=== PATIENT | female | born 2000 | race African-American/Black ===

== ENCOUNTER 2020-08-31 12:39 | Emergency (ER) | payer SELFPAY ==
[2020-08-31] MEDS ORDERED: DIAZEPAM 5 MG TABLET ONE (13:50)
[2020-08-31 14:07] LABS: Absolute Lymphocytes (CBC) 0.9 K/uL (0.7-4.9); Basophils % 0.7 % (0-1.3); Hematocrit 38.1 % (36.0-45.0); Lymphocytes % 10.4 % (15.3-44.8); MPV 9.4 fL (7.6-11.3); RBC Red Blood Cell Count 4.22 M/uL (3.86-4.86)
[2020-08-31 14:23] LABS: Protime INR 0.99
[2020-08-31 14:25] LABS: ALT/SGPT 15 U/L (12-78); AST/SGOT 16 U/L (15-37); Albumin 4.3 g/dL (3.4-5.0); Alkaline Phosphatase 78 U/L (45-117); BUN Blood Urea Nitrogen 6 mg/dL (7-18); Bicarbonate 26 mmol/L (21-32); Bilirubin Direct < 0.1 mg/dL (0-0.2); Bilirubin Total 0.3 mg/dL (0.2-1.0); Glucose Level 89 mg/dL (74-106); Potassium 3.6 mmol/L (3.5-5.1); Protein, Total 7.6 g/dL (6.4-8.2); Sodium Level 140 mmol/L (136-145)
[2020-08-31 14:41] LABS: Urine Blood 2+ (Negative); Urine Glucose Negative (Negative); Urine Protein Negative (Negative); Urine Specific Gravity >=1.030 (1.005-1.030); Urine pH 5.5 (5.0-7.0)
[2020-08-31 15:26] LABS: Barbiturates NEGATIVE (NEGATIVE); Benzodiazepines NEGATIVE (NEGATIVE); Cocaine NEGATIVE (NEGATIVE); METHAMPHETAM NEGATIVE (NEGATIVE); Methadone NEGATIVE (NEGATIVE); Opiates NEGATIVE (NEGATIVE); Phencyclidine NEGATIVE (NEGATIVE); THC Cannibis POSITIVE (NEGATIVE)
--- NOTE | 2020-08-31 15:53 | ER ---
Nurse's Notes [facility] Name: Maday Yoder Age: 20 yrs Sex: Female : 2000 Arrival Date: 08/31/2020 Time: 12:49 Bed 17 Private MD: Diagnosis: Depression. Presentation: 08/31 12:54 Chief complaint: EMS states: pt arrived in ED via EMS for +SI/+HI attempted to hang tr6 herself while in [employer]. Per EMS pt tried to hang herself with a telephone cord, but a special police officer took the cord away. Pt attempted a second time, but was stopped once again by the officer. Pt AOx3, pt reports that she currently does not have any pain. +redness to front of neck. Pt reports that she has attempts in the past. Coronavirus screen: Client denies travel out of the [place] in the last 14 days. Ebola Screen: No symptoms or risks identified at this time. Risk Assessment: Do you want to hurt yourself or someone else? Patient reports desire/thoughts of hurting themselves or someone else. Provider notified. 12:54 Method Of Arrival: EMS tr6 12:54 Acuity: BAN 2 tr6 13:25 Initial Sepsis Screen: Does the patient meet any 2 criteria? No. Patient's initial tr6 sepsis screen is negative. Does the patient have a suspected source of infection? No. Patient's initial sepsis screen is negative. 13:25 Onset of symptoms is unknown. tr6 Triage Assessment: 12:59 Pain: Denies pain. EENT: redness to pts neck. Denies pain blurred vision difficulty tr6 swallowing. Neuro: No deficits noted. Cardiovascular: No deficits noted. Respiratory: No deficits noted. GI: No deficits noted. : No deficits noted. Derm: No deficits noted. Musculoskeletal: No deficits noted. Injury Description: redness noted to front of pts neck. 13:25 General: Behavior is calm, cooperative, crying, flat. tr6 CORE MAN: 09/03 10:12 LMP N/A - control method ll1 Historical: - Allergies: 08/31 12:58 No Known Allergies; tr6 - Home Meds: 12:59 Unable to obtain [Active]; tr6 - PMHx: 12:58 Bipolar disorder; Schizophrenia; tr6 - Immunization history:: Adult Immunizations unknown. - Social history:: Smoking status: Patient reports the use of cigarette tobacco products, smokes one pack cigarettes per day. Patient uses street drugs, marijuana, pt reports that she does pills. she is unsure what pills she takes, she gets the pills "from a thee". - Family history:: not pertinent. - Hospitalizations: : No recent hospitalization is reported. Screenin:03 Abuse screen: Denies threats or abuse. Nutritional screening: No deficits noted. tr6 Tuberculosis screening: No symptoms or risk factors identified. The patient passed the bedside swallow screening. Oral medications may be given as ordered. Contact Physician for further diet orders. Fall Risk None identified. Exposure risk/Travel Screening: None identified. Assessment: 13:03 General: Appears in no apparent distress. comfortable. Pain: Denies pain. Neuro: No tr6 deficits noted. Cardiovascular: No deficits noted. Respiratory: No deficits noted. GI: No deficits noted. : No deficits noted. EENT: No deficits noted. Derm: No deficits noted. Musculoskeletal: No deficits noted. Injury Description: redness noted to front of pts neck. 14:00 Reassessment: Patient appears in no apparent distress at this time. Patient is tr6 alert/active/playful, equal unlabored respirations, skin warm/dry/pink. 15:00 Reassessment: Patient appears in no apparent distress at this time. tr6 15:00 Reassessment: No changes from previously documented assessment. Patient and/or family tr6 updated on plan of care and expected duration. Pain level reassessed. Patient is alert, oriented x 3, equal unlabored respirations, skin warm/dry/pink. Patient denies pain at this time. 16:00 Reassessment: Patient appears in no apparent distress at this time. tr6 17:00 Reassessment: Patient appears in no apparent distress at this time. No changes from tr6 previously documented assessment. Patient and/or family updated on plan of care and expected duration. Pain level reassessed. Patient is alert, oriented x 3, equal unlabored respirations, skin warm/dry/pink. 17:44 Reassessment: pt sleeping. respirations even and unlabored. tr6 19:17 Reassessment: Patient appears in no apparent distress at this time. No changes from tr6 previously documented assessment. Patient and/or family updated on plan of care and expected duration. Pain level reassessed. Patient is alert, oriented x 3, equal unlabored respirations, skin warm/dry/pink. sitter at bedside. report given to EMILE Killian Patient denies pain at this time. 20:36 Reassessment: Patient and/or family updated on plan of care and expected duration. Pain ea level reassessed. Patient is alert, oriented x 3, equal unlabored respirations, skin warm/dry/pink. 22:22 Reassessment: Patient and/or family updated on plan of care and expected duration. Pain ea level reassessed. Pt resting with eyes closed, respirations even and unlabored. Chest expansions even and symmetrical. 09/01 02:13 Reassessment: Patient and/or family updated on plan of care and expected duration. Pain ea level reassessed. Pt resting with eyes closed, respirations even and unlabored, chest expansions even and symmetrical. 05:59 Reassessment: Patient and/or family updated on plan of care and expected duration. Pain ea level reassessed. Pt resting with eyes closed respirations even and unlabored. Chest expansions even and symmetrical. 07:00 Reassessment: Patient appears in no apparent distress at this time. Patient and/or hb family updated on plan of care and expected duration. Pain level reassessed. Patient is alert, oriented x 3, equal unlabored respirations, skin warm/dry/pink. Sitter at bedside. 08:00 Reassessment: Patient appears in no apparent distress at this time. Patient and/or hb family updated on plan of care and expected duration. Pain level reassessed. Patient is alert, oriented x 3, equal unlabored respirations, skin warm/dry/pink. Sitter at bedside. 09:00 Reassessment: Patient appears in no apparent distress at this time. Patient and/or hb family updated on plan of care and expected duration. Pain level reassessed. Patient is alert, oriented x 3, equal unlabored respirations, skin warm/dry/pink. Sitter at bedside. 09:47 Reassessment: Pt restless, c/o feeling anxious. Dr. Gibson notified, Ativan hb administered as ordered. Pt in bed, watching television, VSS. Sitter remains at bedside. 10:22 Reassessment: Patient appears in no apparent distress at this time. Patient and/or vg1 family updated on plan of care and expected duration. Pain level reassessed. Patient is alert, oriented x 3, equal unlabored respirations, skin warm/dry/pink. Pt stated 'im feeling ok'. Asked pt pain level, pt stated 0/10. 12:06 Reassessment: Patient appears in no apparent distress at this time. Patient and/or vg1 family updated on plan of care and expected duration. Pain level reassessed. Patient is alert, oriented x 3, equal unlabored respirations, skin warm/dry/pink. Patient denies pain at this time. 12:15 Reassessment: Pt request to speak with provider. vg1 13:50 Reassessment: Patient appears in no apparent distress at this time. Patient and/or vg1 family updated on plan of care and expected duration. Pain level reassessed. Patient is alert, oriented x 3, equal unlabored respirations, skin warm/dry/pink. Patient denies pain at this time. 17:05 Reassessment: Patient appears in no apparent distress at this time. Patient and/or vg1 family updated on plan of care and expected duration. Pain level reassessed. Patient is alert, oriented x 3, equal unlabored respirations, skin warm/dry/pink. Patient denies pain at this time. 18:14 Reassessment: Patient appears in no apparent distress at this time. Patient and/or vg1 family updated on plan of care and expected duration. Pain level reassessed. Patient is alert, oriented x 3, equal unlabored respirations, skin warm/dry/pink. Patient denies pain at this time. 19:14 Reassessment: Patient appears in no apparent distress at this time. Patient and/or vg1 family updated on plan of care and expected duration. Pain level reassessed. Patient is alert, oriented x 3, equal unlabored respirations, skin warm/dry/pink. Pt has not ate dinner, asked pt if was hungry, pt stated 'I'll eventually eat it here in a bit'. Asked patient if wanted anything to drink other than water, pt stated would like juice; apple juice was given. Pt asked if could have some medication for sleep, told pt would ask provider on shift. Patient denies pain at this time. 21:37 Reassessment: Pt resting in bed with eyes closed. vg1 22:39 Reassessment: pt requesting something to help her sleep, Dr. Richmond notified, verbal iw order for Ativan 1 mg IVP to be given. 09/02 00:36 Reassessment: Patient appears in no apparent distress at this time. Patient and/or sf family updated on plan of care and expected duration. Pain level reassessed. Patient is alert, oriented x 3, equal unlabored respirations, skin warm/dry/pink. Patient denies pain at this time. 02:13 Reassessment: Patient appears in no apparent distress at this time. No changes from sf previously documented assessment. Patient and/or family updated on plan of care and expected duration. Pain level reassessed. Patient is alert, oriented x 3, equal unlabored respirations, skin warm/dry/pink. 03:11 Reassessment: Patient appears in no apparent distress at this time. No changes from sf previously documented assessment. Patient and/or family updated on plan of care and expected duration. Pain level reassessed. Patient is alert, oriented x 3, equal unlabored respirations, skin warm/dry/pink. 04:20 Reassessment: Patient appears in no apparent distress at this time. No changes from sf previously documented assessment. Sleeping. 05:36 Reassessment: Patient appears in no apparent distress at this time. No changes from sf previously documented assessment. Sleeping. 06:04 Reassessment: Patient appears in no apparent distress at this time. No changes from sf previously documented assessment. Sleeping. 06:59 Reassessment: Patient appears in no apparent distress at this time. No changes from sf previously documented assessment. Sleeping. 08:00 General: Appears in no apparent distress. comfortable, Behavior is calm, cooperative, kg appropriate for age, quiet. General: Pt denies having any suicidal ideation or plan. Patient denies seeing anything that is not there or hearing anything that is not that. Pt has no complaints at this time. Will continue to monitor. . Pain: Denies pain. Neuro: No deficits noted. Cardiovascular: No deficits noted. Respiratory: No deficits noted. GI: No deficits noted. : No deficits noted. EENT: No deficits noted. Derm: No deficits noted. Musculoskeletal: No deficits noted. 09:14 Reassessment: Pt called nurse to room and stated that she is currently having more kg anxiety and would like some medication. Will follow up with .. 10:00 Reassessment: No changes from previously documented assessment. Patient and/or family kg updated on plan of care and expected duration. Pain level reassessed. Patient is alert, oriented x 3, equal unlabored respirations, skin warm/dry/pink. Patient denies pain at this time. 10:15 Reassessment: Called Paul Mcneill pt aunt [phone] to discuss pt care and plan. kg Paul didn't answer, message left.. 12:00 Reassessment: No changes from previously documented assessment. Patient and/or family kg updated on plan of care and expected duration. Pain level reassessed. Patient is alert, oriented x 3, equal unlabored respirations, skin warm/dry/pink. Patient denies pain at this time. 14:00 Reassessment: No changes from previously documented assessment. Patient and/or family kg updated on plan of care and expected duration. Pain level reassessed. Patient is alert, oriented x 3, equal unlabored respirations, skin warm/dry/pink. Patient denies pain at this time. 14:20 Reassessment: Pt other aunt came up to the hospital to take her to [place] to be kg treated by Dr. Garcia her DrJackie at [facility]. Pt stated that she had spoke to Dr. Garcia this morning and he stated that as long as we sent over the information that he would except her. Spoke with Dr. Gibson who agreed with the plan. The [employer] then called the number for Dr. Garcia that the pt provided but no answer. Message was left. Will continue to try to get a hold of Dr. Garcia to arrange acceptance to his facility. Pt and aunt are aware of plan. Will continue to monitor. Dr. Garcia's number is [phone].. 16:00 Reassessment: No changes from previously documented assessment. Patient and/or family kg updated on plan of care and expected duration. Pain level reassessed. Patient is alert, oriented x 3, equal unlabored respirations, skin warm/dry/pink. Patient denies pain at this time. 18:00 Reassessment: No changes from previously documented assessment. Patient and/or family kg updated on plan of care and expected duration. Pain level reassessed. Patient is alert, oriented x 3, equal unlabored respirations, skin warm/dry/pink. Patient denies pain at this time. 19:10 General: Appears in no apparent distress. comfortable, Behavior is calm, cooperative. sf Pain: Denies pain. Neuro: No deficits noted. Cardiovascular: No deficits noted. Respiratory: No deficits noted. GI: No deficits noted. : No deficits noted. Derm: No deficits noted. Musculoskeletal: No deficits noted. 20:08 Reassessment: Patient appears in no apparent distress at this time. No changes from sf previously documented assessment. Patient and/or family updated on plan of care and expected duration. Pain level reassessed. Patient is alert, oriented x 3, equal unlabored respirations, skin warm/dry/pink. 21:15 Reassessment: Patient appears in no apparent distress at this time. No changes from sf previously documented assessment. Patient and/or family updated on plan of care and expected duration. Pain level reassessed. Patient is alert, oriented x 3, equal unlabored respirations, skin warm/dry/pink. 22:26 Reassessment: Patient appears in no apparent distress at this time. Patient and/or sf family updated on plan of care and expected duration. Pain level reassessed. Patient is alert, oriented x 3, equal unlabored respirations, skin warm/dry/pink. [place] suicide severity rating scale and screen, re-screening tool done and patient states "no" to all questions. Denies suicidal ideation at this time. 23:00 Reassessment: Patient appears in no apparent distress at this time. No changes from sf previously documented assessment. Patient and/or family updated on plan of care and expected duration. Pain level reassessed. Patient is alert, oriented x 3, equal unlabored respirations, skin warm/dry/pink. 09/03 00:04 Reassessment: Patient appears in no apparent distress at this time. No changes from sf previously documented assessment. Patient and/or family updated on plan of care and expected duration. Pain level reassessed. Patient is alert, oriented x 3, equal unlabored respirations, skin warm/dry/pink. Talking on the phone. 01:02 Reassessment: Patient appears in no apparent distress at this time. No changes from sf previously documented assessment. Talking on the phone. 02:00 Reassessment: Patient appears in no apparent distress at this time. No changes from sf previously documented assessment. Sleeping. 02:59 Reassessment: Patient appears in no apparent distress at this time. No changes from sf previously documented assessment. Patient and/or family updated on plan of care and expected duration. Pain level reassessed. Sleeping. 04:04 Reassessment: Patient appears in no apparent distress at this time. No changes from sf previously documented assessment. Sleeping. 05:00 Reassessment: Patient appears in no apparent distress at this time. No changes from sf previously documented assessment. Sleeping. 06:00 Reassessment: Patient appears in no apparent distress at this time. No changes from sf previously documented assessment. Sleeping. 07:20 Reassessment: Patient appears in no apparent distress at this time. No changes from sf previously documented assessment. Sleeping. 08:20 Reassessment: No changes from previously documented assessment. Patient and/or family ll1 updated on plan of care and expected duration. Pain level reassessed. 09:20 Reassessment: No changes from previously documented assessment. Patient and/or family ll1 updated on plan of care and expected duration. Pain level reassessed. Patient states feeling better. 10:11 Reassessment: No changes from previously documented assessment. Patient and/or family ll1 updated on plan of care and expected duration. Pain level reassessed. Patient is alert, oriented x 3, equal unlabored respirations, skin warm/dry/pink. Patient states feeling better. Patient states symptoms have improved. Vital Signs: 08/31 12:54 BP 119 / 66; Pulse 86; Resp 18; Pulse Ox 100% ; tr6 09/01 08:21 BP 121 / 77; Pulse 78; Resp 16; Temp 97.6(O); Pulse Ox 100% on R/A; 5 09/02 07:00 BP 115 / 62; Pulse 79; Resp 17; Pulse Ox 100% ; Pain 0/10; kg 14:37 BP 125 / 80; Pulse 95; Pulse Ox 100% ; Pain 0/10; jp3 22:20 BP 130 / 92; Pulse 66; Resp 16; Pulse Ox 96% ; Pain 0/10; sf 09/03 10:11 BP 131 / 81; Pulse 70; Resp 16; Temp 98.0; Pulse Ox 96% on R/A; Pain 0/10; ll1 ED Course: 08/31 12:49 Patient arrived in ED. aa5 12:51 Eric Escudero MD is Attending Physician. rn 12:53 Yue Davis, RN is Primary Nurse. tw2 12:58 Triage completed. tr6 12:59 Arm band placed on right wrist. Patient placed in an exam room, on a stretcher. tr6 13:03 Safety Checks: Personal items have been removed. The door is not opened, nor is patient tr6 placed in a hallway bed/chair. Sitter present at this time. 13:03 Patient has correct armband on for positive identification. Bed in low position. Side tr6 rails up X2. sitter with pt. Sitter at bedside. Patient is placed in psych hold. Patient is placed in psych hold. 13:24 No apparent distress. tr6 13:26 No provider procedures requiring assistance completed. tr6 14:40 Urine collected: clean catch specimen, clear, UDS sent to lab. aa5 14:44 Urine Drug Screen Sent. tr6 15:33 faxed patient chart to intake at [facility], [facility], [facility], [facility]. 09/01 08:32 Warm blanket given. Diet tray ordered. Verbal reassurance given. Linen changed. mh5 08:33 Diet: Patient given a regular meal tray. mh5 10:23 Primary Nurse role handed off by Yue Davis RN vg1 10:23 Amna Webster, EMILE is Primary Nurse. vg1 12:49 Diet tray given. jp3 13:51 Diet tray given. PO fluids given. Verbal reassurance given. mh5 22:12 Report given to EMILE Smith. vg1 09/02 00:40 Primary Nurse role handed off by Amna Webster, EMILE tt3 07:28 Clifford Segovia, RN is Primary Nurse. ll1 07:31 Primary Nurse role handed off by Clifford Segovia, EMILE kg 07:31 Verona Zhou is Primary Nurse. kg 09:05 IV discontinued, intact, bleeding controlled, No redness/swelling at site. Pressure mt dressing applied. 19:39 Report given to Luis BAPTISTE. kg 20:15 Primary Nurse role handed off by Verona Zhou tt3 09/03 07:05 Report given to EMILE Horton. sf 07:14 Attending Physician role handed off by Eric Escudero MD pkl 07:14 Sukhjinder Castillo MD is Attending Physician. pkl 07:26 Sukhjinder Castillo MD is Attending Physician. pkl 07:26 Called the [facility] at [phone]. spoke with Chary. She will page eb out the screener fellmongering machine operator for patient evaluation. 07:37 Clifford Segovia RN is Primary Nurse. ll1 08:17 faxed over patient records to Darron from [facility] at [phone]. and connected him eb with patient for screening. 10:12 Patient did not have IV access during this emergency room visit. ll1 Administered Medications: 08/31 13:37 Drug: Valium (diazepam) 5 mg Route: PO; tr6 14:00 Follow up: Response: No adverse reaction; Anxiety decreased tr6 20:13 Drug: Geodon 20 mg Route: IM; Site: right deltoid; ea 09/02 00:37 Follow up: Response: No adverse reaction sf 08/31 20:23 Drug: Nicoderm CQ 21 mg/24 hr 1 patches Route: Transdermal; Site: affected area; ea 09/01 09:46 Drug: Ativan (LORazepam) 2 mg Route: IVP; Site: right forearm; hb 10:35 Follow up: Response: No adverse reaction vg1 22:38 CANCELLED (Duplicate Order): Ativan (LORazepam) 1 mg IVP once iw 22:51 Drug: Ativan (LORazepam) 1 mg Route: IVP; Site: right antecubital; iw 09/02 00:37 Follow up: Response: No adverse reaction sf 09:00 Drug: Ativan (LORazepam) 1 mg Route: PO; kg 09:13 Follow up: Response: No adverse reaction; Anxiety decreased kg 12:00 Drug: Nicoderm CQ 21 mg/24 hr 1 patches {Note: Left shoulder.} Route: Transdermal; kg Site: left thigh; Outcome: 08/31 15:53 ER care complete, transfer ordered by . rn 09/03 10:06 Discharge ordered by . pkl 10:12 Discharged to home ambulatory. ll1 10:12 Condition: stable 10:12 Discharge instructions given to patient, Instructed on discharge instructions, follow up and referral plans. 10:49 Patient left the ED. ll1 Signatures: Sukhjinder Castillo MD MD pkKiera Benton RN Eric Duncan MD MD rn Calderon, Audri, RN RN aa5 Siri Santana, RN EMILE Digna Parnell, RN RN 2 Gem Cornejo [facility] Jennifer Zavala mt, Elena, RN RN Sondra Allen Jacob jp3 Amna Webster, RN RN vg1 Clifford Segovia, RN RN ll1 Luke Rabago tt3 Luis Maurice RN RN sf Ramnanan, Tiffany RN RN tr6 Abelardo Verona kg Corrections: (The following items were deleted from the chart) 09/02 19:52 14:20 Reassessment: Pt other aunt came up to the hospital to take her to [place] to be kg treated by Dr. Garcia her DrJackie at [facility]. Pt stated that she had spoke to Dr. Garcia this morning and he stated that as long as we sent over the information that he would except her. Spoke with Dr. Gibson who agreed with the plan. The [facility] then called the number for Dr. Garcia that the pt provided but no answer. Message was left. Will continue to try to get a hold of Dr. Garcia to arrange acceptance to his facility. Pt and aunt are aware of plan. Will continue to monitor. . kg 20:41 20:40 CBC+H.LAB.BRZ drawn and sent. sf sf 20:41 20:40 BASIC METABOLIC PANEL+C.LAB.BRZ drawn and sent. sf sf 20:41 20:40 ACETAMINOPHEN+C.LAB.BRZ drawn and sent. sf sf 09/03 02:13 01:02 Reassessment: Patient appears in no apparent distress at this time. No changes sf from previously documented assessment. Sleeping sf : 01:02 Reassessment: sf sf
--- NOTE | 2020-08-31 15:53 | EDPHYS ---
Physician Documentation [facility] Name: Maday Yoder Age: 20 yrs Sex: Female : 2000 Arrival Date: 08/31/2020 Time: 12:49 Bed 17 Private MD: ED Physician Sukhjinder Castillo HPI: 08/31 13:02 This 20 yrs old Black Female presents to ER via EMS with complaints of suicidal rn ideation. 13:02 The patient presents to the emergency department with a history of a suicide gesture, rn wrapped charging cord around neck, suicide ideation, and the patient has a plan. Onset: The symptoms/episode began/occurred just prior to arrival. Past psychiatric history: the patient has had a prior suicide gesture, tried to choke herself. Associated signs and symptoms: Pertinent positives; suicide ideation, Pertinent negatives: fever, hallucinations, homicidal ideation, paranoia, tremor. Severity of symptoms: At their worst the symptoms were moderate in the emergency department the symptoms are unchanged. The patient has experienced similar episodes in the past. The patient has not recently seen a physician. Reports hx of anxiety and bipolar disorder, not complaint with meds and doesn't know her meds, called 911 herself after having suicidal ideation and wrapped a phone kettle firer around her neck. Did not choke herself, does not hurt, no trouble swallowing or breathing. Did not pass out. States police stopped her. Has tried to choke herself in past. voluntary and cooperative. . [employer]: 09/03 10:12 LMP N/A - control method ll1 Historical: - Allergies: 08/31 12:58 No Known Allergies; tr6 - Home Meds: 12:59 Unable to obtain [Active]; tr6 - PMHx: 12:58 Bipolar disorder; Schizophrenia; tr6 - Immunization history:: Adult Immunizations unknown. - Social history:: Smoking status: Patient reports the use of cigarette tobacco products, smokes one pack cigarettes per day. Patient uses street drugs, marijuana, pt reports that she does pills. she is unsure what pills she takes, she gets the pills "from a [facility]". - Family history:: not pertinent. - Hospitalizations: : No recent hospitalization is reported. ROS: 13:02 Constitutional: Negative for fever, chills, and weight loss, Eyes: Negative for injury, rn pain, redness, and discharge, Neck: Negative for injury, pain, and swelling, Cardiovascular: Negative for chest pain, palpitations, and edema, Respiratory: Negative for shortness of breath, cough, wheezing, and pleuritic chest pain, Abdomen/GI: Negative for abdominal pain, nausea, vomiting, diarrhea, and constipation, Back: Negative for injury and pain, MS/Extremity: Negative for injury and deformity, Skin: Negative for injury, rash, and discoloration, Neuro: Negative for headache, weakness, numbness, tingling, and seizure, Psych: + depression, anxiety, and suicidal ideation Exam: 13:02 Constitutional: This is a well developed, well nourished patient who is awake, alert, rn and in no acute distress. Head/Face: Normocephalic, atraumatic. ENT: No stridor Neck: Trachea midline, no thyromegaly or masses palpated, and no cervical lymphadenopathy. Supple, full range of motion without nuchal rigidity, or vertebral point tenderness. No Meningismus. NO ligature coleman or open wounds. Cardiovascular: Regular rate and rhythm. No pulse deficits. Respiratory: No increased work of breathing, no retractions or nasal flaring. Abdomen/GI: Soft, non-tender Skin: Warm, dry with normal turgor. Normal color with no rashes, no lesions, and no evidence of cellulitis. MS/ Extremity: Pulses equal, no cyanosis. Neurovascular intact. Full, normal range of motion. Equal circumference. Neuro: Awake and alert, GCS 15, oriented to person, place, time, and situation. Cranial nerves II-XII grossly intact. Motor strength 5/5 in all extremities. Sensory grossly intact. Vital Signs: 12:54 BP 119 / 66; Pulse 86; Resp 18; Pulse Ox 100% ; tr6 09/01 08:21 BP 121 / 77; Pulse 78; Resp 16; Temp 97.6(O); Pulse Ox 100% on R/A; mh5 09/02 07:00 BP 115 / 62; Pulse 79; Resp 17; Pulse Ox 100% ; Pain 0/10; kg 14:37 BP 125 / 80; Pulse 95; Pulse Ox 100% ; Pain 0/10; jp3 22:20 BP 130 / 92; Pulse 66; Resp 16; Pulse Ox 96% ; Pain 0/10; sf 09/03 10:11 BP 131 / 81; Pulse 70; Resp 16; Temp 98.0; Pulse Ox 96% on R/A; Pain 0/10; ll1 MDM: 08/31 12:51 Patient medically screened. rn 15:49 Differential diagnosis: depression, suicidal ideation and gesture. rn 15:51 Data reviewed: vital signs, nurses notes, lab test result(s), EKG, and as a result, I rn will admit patient. Counseling: I had a detailed discussion with the patient and/or guardian regarding: the historical points, exam findings, and any diagnostic results supporting the discharge/admit diagnosis, lab results, the need to transfer to another facility, [facility] does not immediately have the required specialist. Special discussion:. ED course: Pt medically cleared for transfer to psychiatric facility. Initiating transfer. Voluntary.. 09/03 07:23 ED course: Patient said she is no longer suicidal. Wants to go home. Consult [facility] screener for evaluation. 10:03 ED course: Patient evaluated by [facility] screener ( Darron Childers ) Patient not pkl suicidal. May be followed up as outpatient. Patient understood instructions. 08/31 13:01 Order name: Acetaminophen rn 08/31 13:01 Order name: Basic Metabolic Panel 08/31 13:01 Order name: CBC with Diff rn 08/31 13:01 Order name: ETOH Level; Complete Time: 15:21 08/31 13:01 Order name: Hepatic Function; Complete Time: 15:21 08/31 13:01 Order name: PT-INR; Complete Time: 15:21 08/31 13:01 Order name: Ptt, Activated; Complete Time: 15:21 08/31 13:01 Order name: Salicylate; Complete Time: 15:21 rn 08/31 13:01 Order name: Urine Drug Screen; Complete Time: 22:52 rn 08/31 13:01 Order name: Acetaminophen Level; Complete Time: 15:21 EDOK 08/31 13:01 Order name: Basic Metabolic Panel; Complete Time: 15:21 EDOK 08/31 13:01 Order name: CBC with Automated Diff; Complete Time: 14:19 EDOK 08/31 14:41 Order name: Urine Dipstick-Ancillary; Complete Time: 15:21 EDOK 08/31 13:01 Order name: EKG; Complete Time: 13:02 08/31 16:10 Order name: Diet Regular; Complete Time: 16:11 [facility] 08/31 17:10 Order name: SARS-COV-2 RT PCR; Complete Time: 22:52 EDMS 09/01 08:07 Order name: Diet Regular; Complete Time: 08:08 5 09/01 11:19 Order name: Diet Regular; Complete Time: 11:19 ss 09/01 12:23 Order name: Diet Regular; Complete Time: 12:24 5 09/02 07:17 Order name: Diet Regular; Complete Time: 07:17 ss 09/02 11:20 Order name: Diet Regular; Complete Time: 11:21 08/31 13:01 Order name: Suicide Precautions; Complete Time: 13:11 rn 08/31 13:01 Order name: Urine Test (obtain specimen); Complete Time: 13:47 rn 08/31 13:01 Order name: EKG - Nurse/Tech; Complete Time: 14:43 08/31 13:01 Order name: IV Saline Lock; Complete Time: 13:11 08/31 13:01 Order name: Labs collected and sent; Complete Time: 13:47 rn 08/31 13:01 Order name: Suicide Screening ([place]); Complete Time: 13:11 08/31 13:01 Order name: Urine Dipstick-Ancillary (obtain specimen); Complete Time: 14:43 09/03 07:11 Order name: Diet Regular; Complete Time: 07:12 eb Administered Medications: 08/31 13:37 Drug: Valium (diazepam) 5 mg Route: PO; tr6 14:00 Follow up: Response: No adverse reaction; Anxiety decreased tr6 20:13 Drug: Geodon 20 mg Route: IM; Site: right deltoid; ea 09/02 00:37 Follow up: Response: No adverse reaction 08/31 20:23 Drug: Nicoderm CQ 21 mg/24 hr 1 patches Route: Transdermal; Site: affected area; ea 09/01 09:46 Drug: Ativan (LORazepam) 2 mg Route: IVP; Site: right forearm; hb 10:35 Follow up: Response: No adverse reaction vg1 22:38 CANCELLED (Duplicate Order): Ativan (LORazepam) 1 mg IVP once iw 22:51 Drug: Ativan (LORazepam) 1 mg Route: IVP; Site: right antecubital; iw 09/02 00:37 Follow up: Response: No adverse reaction sf 09:00 Drug: Ativan (LORazepam) 1 mg Route: PO; kg 09:13 Follow up: Response: No adverse reaction; Anxiety decreased kg 12:00 Drug: Nicoderm CQ 21 mg/24 hr 1 patches {Note: Left shoulder.} Route: Transdermal; kg Site: left thigh; Disposition: 09/03/20 10:06 Discharged to Home. Impression: Depression.. - Condition is Stable. - Medication Reconciliation Form, Thank You Letter, Antibiotic Education, Prescription Opioid Use form. - Follow up: Private Physician; When: 2 - 3 days; Reason: Re-evaluation by your physician. - Problem is new. - Symptoms have improved. Signatures: Dispatcher [employer] EDMS Sukhjinder Castillo MD MD pkl Williams, Irene, RN RN Eric Escudero MD MD rn Baxter, Heather RN EMILE Marysol De Luna RN RN ea Wadley, Terrence, MD MD tw4 Clifford Segovia RN RN ll1 Fletcher Richmond MD MD mh7 Yue Davis RN RN tr6 Verona Zhou kg, Victoria RN 1 Luis Maurice RN sf Corrections: (The following items were deleted from the chart) 08/31 16:22 15:35 CORONAVIRUS+MR.LAB.BRZ ordered. [facility] EDOK 09/01 22:38 22:38 Ativan (LORazepam) 1 mg IVP once ordered. [facility] 09/03 10:03 08/31 15:53 08/31/2020 15:53 Transfer ordered to Psych Facility. Diagnosis is Suicidal pkl ideations. Reason for transfer: Higher level of care. Accepting physician is . Condition is Stable. Problem is new. Symptoms are unchanged. rn 09/03 10:49 10:06 09/03/2020 10:06 Discharged to Home. Impression: Depression.. Condition is ll1 Stable. Forms are Medication Reconciliation Form, Thank You Letter, Antibiotic Education, Prescription Opioid Use. Follow up: Private Physician; When: 2 - 3 days; Reason: Re-evaluation by your physician. Problem is new. Symptoms have improved. pkl
[2020-08-31] MEDS ORDERED: ZIPRASIDONE MESYLA 20 MG/VIAL IM ONE (20:25)
[2020-08-31] MEDS ORDERED: WATER FOR INJ,STERILE 10 ML ONE (20:26)
[2020-08-31] MEDS ORDERED: NICOTINE 21 MG/PAT TD ONE (20:41)
[2020-09-01] MEDS ORDERED: LORazepam 2 MG/ML VIAL ONE ×2 (09:59→23:06)
--- NOTE | 2020-09-02 08:01 | EKG ---
Test Date: 2020-08-31 Test Time: 13:48:51 [employer]: TTR MEASUREMENT RESULTS: Intervals: Rate: 66 OK: 118 QRSD: 80 QT: 364 QTc: 381 [place]: P: 20 OK: 118 QRS: 89 T: 32 INTERPRETIVE STATEMENTS: Normal sinus rhythm with sinus arrhythmia Nonspecific T wave abnormality Abnormal ECG No previous ECG available for comparison Electronically Signed On 09-02-20 07:58:17 CDT by Joseluis Ernst
[2020-09-02] MEDS ORDERED: LORAZEPAM 1 MG TABLET ONE (09:07)
[2020-09-02] MEDS ORDERED: NICOTINE 21 MG/PAT TD ONE (12:20)
[2020-09-03 11:00] VITALS: O2SAT 96
[2020-09-03 11:02] VITALS: BP 131/81; TEMP 98
== END 2020-09-03 10:49 | disposition home or self-care (01) ==
LOC: ER 12:39
DX: F32.9 Major depressive disorder, single episode, unspecified (principal); F20.9 Schizophrenia, unspecified; F17.210 Nicotine dependence, cigarettes, uncomplicated; Z20.822 Contact with and (suspected) exposure to COVID-19
CPT/HCPCS: 36415; 80048; 80076; 80307; 80320; 80329; 81003; 85025; 85610; 85730; 93005; 96372; 99284; J3486; U0003